=== PATIENT | female | born 1970 | race Caucasian/White ===

== ENCOUNTER 2019-05-20 14:31 | Emergency (ER) | payer OTHER ==
--- NOTE | 2019-05-20 14:43 | ED Physician Documentation ---
History of Present Illness - Stated complaint Stated Complaint: GLF - SKIN ABRASIONS - Chief complaint Chief Complaint: General - History obtained from History obtained from: Patient - Additonal information Additional information: Patient is a 48-year-old female presenting with abrasions and surrounding skin changes to her right elbow and right knee after a mechanical fall several days ago Joan Denson. Patient reports that she has been heavily applying topical ointments, sprays, and keeping wounds tightly bandaged while out in the heat and being active. Patient reports blistering of skin surrounding the abrasions, as well as mild itchiness and swelling. No purulent drainage, fever, changes in sensation/strength/range of motion to any extremity. No other improving or worsening factors noted. Review of Systems Constitutional: denies: Fever Skin: reports: Rash, Abrasion (s) Musculoskeletal: reports: Extremity pain PD PAST MEDICAL HISTORY - Past Medical History Past Medical History: Yes Neuro: CVA GI: GERD - Past Surgical History Past Surgical History: No - Allergies Allergies/Adverse Reactions: Allergies Allergy/AdvReac Type Severity Reaction Status Date / Time No Known Drug Allergies Allergy Verified 05/20/19 14:38 PD ED PE NORMAL - Vitals Vital signs reviewed: Yes - General General: Alert and oriented X 3, No acute distress, Well developed/nourished - HEENT HEENT: Atraumatic, Moist mucous membranes - Cardiac Cardiac: Strong equal pulses - Respiratory Respiratory: No respiratory distress - Derm Derm: Other (Approximately quarter sized area of healing superficial abrasion to right elbow surrounded by moist skin with intact blistering. Similar changes found to right knee. Otherwise uncomplicated.) - Extremities Extremities: No deformity, No tenderness to palpate - Neuro Neuro: Alert and oriented X 3, No motor deficit, No sensory deficit - Psych Psych: Normal mood, Normal affect Results - Vitals Vitals: Vital Signs - 24 hr 05/20/19 14:35 Temperature 36.5 C Heart Rate 93 Respiratory 19 Rate Blood Pressure 126/90 H O2 Saturation 100 Oxygen O2 Source Room air PD MEDICAL DECISION MAKING - ED course Complexity details: considered differential, d/w patient, d/w family ED course: Patient presenting with wounds complicated by persistent moisture, heat, infection. Wounds do not appear to be infected and no signs of abscess, cellulitis, lymphangitis, joint infection. Do not feel patient requires antibiotics or other interventions at this time. Discussed keeping wounds clean, dry, without bandaging at this juncture. Also discussed other supportive cares, return precautions, appropriate follow-up. Patient and voiced understanding and are comfortable with discharge plan. Departure - Departure Disposition: 01 Home, Self Care Clinical Impression: Superficial abrasion Instructions: ED Abrasion Follow-Up: your,doctor [Other] - Within 3 Days Comments: At this time, recommend avoidance of anything topical, as well as bandaging. Would allow the wounds to air out and try out. May apply ice as needed to help with pain and swelling. Otherwise, recommend oral supportive cares including ibuprofen, Tylenol, Benadryl. Please avoid submerging wounds in water such as [place], pool, or ocean. Clean wounds with running water and soap only and pat dry. Follow-up with primary care physician in next 2 to 3 days and return to ED sooner if experience worsening symptoms or have other concerns.
[2019-05-20 14:46] VITALS: BP 126/90
== END 2019-05-20 14:59 | disposition home or self-care (01) ==
LOC: ED 14:31
DX: S50.311A Abrasion of right elbow, initial encounter (principal); S80.211A Abrasion, right knee, initial encounter; W19.XXXA Unspecified fall, initial encounter; Y92.828 Other wilderness area as the place of occurrence of the external cause
CPT/HCPCS: 99281